=== PATIENT | female | born 1980 | race Caucasian/White ===

== ENCOUNTER 2017-01-27 03:41 | Emergency (ER) | payer SELFPAY ==
[~2017-01-27] VITALS: Ht 157.5 cm; Wt 71.5 kg
[~2017-01-27 03:41] MED LIST: PRENAT PO
[2017-01-27 03:44] VITALS: Ht 157.5 cm; Wt 71.5 kg
[2017-01-27] MEDS ORDERED: IBUP800T25 PO (04:30)
[2017-01-27] MEDS ORDERED: ONDA4TAB14 PO (04:30)
[2017-01-27] MEDS ORDERED: DICY10CA60 PO (04:30)
[2017-01-27] MEDS ORDERED: ONDANSETRON (ODT) 4 MG TAB ODT STA (04:31)
[2017-01-27 04:34] LABS: URINE BLOOD (Dip) POC 3+ (NEGATIVE)
--- NOTE | 2017-01-27 04:36 | ERD ---
ER Documentation Chief Complaint Date/Time DATE: 01/27/17 TIME: 04:34 Chief Complaint epigastric pain w/ diarrhea since 5 hours ago HPI 36-year-old female no significant past medical history who presents the emergency room complaining of nausea vomiting and diarrhea. The patient describes approximately 24 hours of symptoms that include nonbloody nonbilious emesis, epigastric and periumbilical abdominal cramping pain and loose watery stools. No recent travel, sick contacts, antibiotics. ROS All systems reviewed and are negative except as per history of present illness. Medications Home Meds Active Scripts Ibuprofen* (Motrin*) 800 Mg Tab, 800 MG PO Q6H Y for PAIN AND OR ELEVATED TEMP, #30 TAB Prov:KUSUM MELO MD 01/27/17 Ondansetron (Ondansetron Odt) 4 Mg Tab.rapdis, 4 MG PO Q6H Y for NAUSEA AND/OR VOMITING, #30 TAB Prov:KUSUM MELO MD 01/27/17 Dicyclomine Hcl* (Bentyl*) 10 Mg Capsule, 10 MG PO QID Y for abdominal cramping , #30 CAP Prov:KUSUM MELO MD 01/27/17 Reported Medications Multivit/Min/Fol Ac/Iron/Pren* ( S*) 1 Tab Tab, 1 TAB PO DAILY, TAB 03/14/16 Allergies Allergies: Coded Allergies: No Known Allergy (Unverified , 02/14/15) PMhx/Soc History of Surgery: No Anesthesia Reaction: No Hx Neurological Disorder: No Hx Respiratory Disorders: No Hx Cardiac Disorders: No Hx Psychiatric Problems: No Hx Miscellaneous Medical Probl: Yes (Shingles, ANEMIA) Hx Alcohol Use: No Hx Substance Use: No Hx Tobacco Use: No FmHx Family History: No diabetes Physical Exam Vitals Vital Signs Date Time Temp Pulse Resp B/P Pulse Ox O2 Delivery O2 Flow Rate FiO2 01/27/17 03:44 97.9 74 20 104/57 100 Physical Exam General: Well developed, well nourished, no acute distress Head: Normocephalic, atraumatic. Eyes: Pupils equally reactive, EOM intact ENT: Moist mucous membranes Neck: Supple, no lymphadenopathy Respiratory: Lungs clear bilaterally, no distress Cardiovascular: RRR, no murmurs, rubs, or gallops Abdominal: Soft, mild epigastric tenderness without rebound or guarding, negative Teague sign, no tenderness to McBurney's point : Deferred MSK: No edema, no unilateral swelling, 5/5 strength Neurologic: Alert and oriented, moving all extremities, normal speech, no focal weakness, no cerebellar signs Skin: No rash Psych: Normal mood Results 24 hrs Laboratory Tests Test 01/27/17 04:34 Bedside Urine pH (LAB) 5.5 Bedside Urine Protein (LAB) Negative Bedside Urine Glucose (UA) Negative Bedside Urine Ketones (LAB) Negative Bedside Urine Blood 3+ Bedside Urine Nitrite (LAB) Negative Bedside Urine Leukocyte Esterase (L Negative Current Medications Medications (Trade) Dose Ordered Sig/Zulma Route PRN Reason Start Time Stop Time Status Last Admin Dose Admin Dicyclomine HCl (Bentyl) 10 mg ONCE ONCE PO 01/27/17 05:00 01/27/17 05:01 Ondansetron HCl (Zofran Odt) 4 mg ONCE STAT ODT 01/27/17 04:31 01/27/17 04:32 DC Procedures/MDM The patient's clinical presentation is very consistent with an acute viral syndrome and likely viral gastroenteritis. No signs or symptoms of acute intra- abdominal process, new choledocholithiasis, acute cholecystitis. I do not believe the laboratory testing is necessary at this time. I offered IM Bentyl but the patient refused IM injection. P.o. hydration with initiation of oral Zofran and Bentyl would be appropriate. I discussed expectant management and return precautions. The patient does not exhibit any clinical signs or symptoms concerning for serious bacterial infection or systemic illness. Based on history and clinical exam findings the patient does not appear to have evidence of pneumonia, strep pharyngitis, urinary tract infection, bacteremia, sepsis, or meningitis. For these reasons I do not believe it is necessary to obtain laboratory testing or diagnostic imaging. I believe it would be appropriate for symptom control, and close outpatient primary care follow-up. We discussed follow up with the patient's primary care doctor within 24 to 48 hours as needed. We also discussed return to the emergency room for worsening symptoms or worsening condition. Discharge Medications: Bentyl, Zofran Departure Diagnosis: Primary Impression: Nausea vomiting and diarrhea Condition: Stable Patient Instructions: Gastroenteritis, Viral (6Y-Adult) Referrals: [facility] YOU HAVE RECEIVED A MEDICAL SCREENING EXAM AND THE RESULTS INDICATE THAT YOU DO NOT HAVE A CONDITION THAT REQUIRES URGENT TREATMENT IN THE EMERGENCY DEPARTMENT. FURTHER EVALUATION AND TREATMENT OF YOUR CONDITION CAN WAIT UNTIL YOU ARE SEEN IN YOUR DOCTORS OFFICE WITHIN THE NEXT 1-2 DAYS. IT IS YOUR RESPONSIBILITY TO MAKE AN APPOINTMENT FOR FOLOW-UP CARE. IF YOU HAVE A PRIMARY DOCTOR --you should call your primary doctor and schedule an appointment IF YOU DO NOT HAVE A PRIMARY DOCTOR YOU CAN CALL OUR PHYSICIAN REFERRAL HOTLINE AT IF YOU CAN NOT AFFORD TO SEE A PHYSICIAN YOU CAN CHOSE FROM THE FOLLOWING [facility] [address] [facility]. [facility] [address] [facility] [facility] [address] [facility] [facility] [address] [facility] [facility] [address] [facility]. [facility] [address] [facility]. [facility] YOU HAVE RECEIVED A MEDICAL SCREENING EXAM AND THE RESULTS INDICATE THAT YOU DO NOT HAVE A CONDITION THAT REQUIRES URGENT TREATMENT IN THE EMERGENCY DEPARTMENT. FURTHER EVALUATION AND TREATMENT OF YOUR CONDITION CAN WAIT UNTIL YOU ARE SEEN IN YOUR DOCTORS OFFICE WITHIN THE NEXT 1-2 DAYS. IT IS YOUR RESPONSIBILITY TO MAKE AN APPOINTMENT FOR FOLOW-UP CARE. IF YOU HAVE A PRIMARY DOCTOR --you should call your primary doctor and schedule and appointment IF YOU DO NOT HAVE A PRIMARY DOCTOR YOU CAN CALL OUR PHYSICIAN REFERRAL HOTLINE AT . IF YOU CAN NOT AFFORD TO SEE A PHYSICIAN YOU CAN CHOSE FROM THE FOLLOWING [facility]: [facility] [address] [place] [address] [facility] [address] [place] [address] [facility] [address] [place] [address] Additional Instructions: Call your primary care doctor TOMORROW for an appointment during the next 1 WEEK.Tell the psychiatric secretary that you were referred from this facility.See the doctor sooner or return here if your condition worsens before your appointment time. KUSUM MELO MD Jan 27, 2017 04:36
[2017-01-27] MEDS ORDERED: DICYCLOMINE 10 MG CAP PO ONE (05:00)
== END 2017-01-27 04:44 | disposition home or self-care (01) ==
LOC: E/R 03:41
DX: R11.2 Nausea with vomiting, unspecified (principal); R19.7 Diarrhea, unspecified
CPT/HCPCS: 81003; 99284

== ENCOUNTER 2017-02-06 09:12 | Emergency (ER) | payer SELFPAY ==
[~2017-02-06] VITALS: Ht 152.4 cm; Wt 69.0 kg
[~2017-02-06 09:12] MED LIST changes: +DICY10CA60 PO; +IBUP800T25 PO; +ONDA4TAB14 PO
[2017-02-06 09:16] VITALS: Ht 152.4 cm; Wt 69.0 kg
[2017-02-06] MEDS ORDERED: ONDANSETRON (ODT) 4 MG TAB ODT STA (09:37)
[2017-02-06] MEDS ORDERED: HYDROCODONE/APAP (5/325) TAB PO ONE (10:00)
--- NOTE | 2017-02-06 10:13 | RADRPT ---
PROCEDURE: CT Brain. CLINICAL INDICATION: Pain status post trauma. TECHNIQUE: Multiple contiguous axial CT images of the brain were obtained without the administrati on of intravenous contrast. Coronal and sagittal reconstructions were also performed. CTDIvol (mGy ): 44.77; Total Exam DLP (mGy-cm): 720.23 COMPARISON: 01/06/2013. FINDINGS: The ventricles are not enlarged. There is no mass effect or midline shift. There is no intracrania l hemorrhage or abnormal extra-axial fluid collection. The bailey-white matter differentiation is wel l maintained. The posterior fossa is unremarkable. Marked preseptal right periorbital soft tissue edema is observed. Air is seen within the right bony orbit. Fracture of the right medial orbital wall is observed. IMPRESSION: No evidence of acute intracranial pathology. Marked preseptal right periorbital soft tissue edema with air within the bony orbit. A fracture of t he medial wall of the right orbit is partially visualized. Please refer to CT facial bones. RPTAT: PP .Yuly Quintero MD, MD Date Time Electronically viewed and signed by .Yuly Quintero MD, on 02/06/2017 10:13 .T/
--- NOTE | 2017-02-06 10:22 | RADRPT ---
PROCEDURE: CT facial bones CLINICAL INDICATION: Trauma, right eye swollen TECHNIQUE: A CT of the facial bones was performed utilizing high-resolution axial images. Sagitta l, coronal, and multiplanar reformatted images were made. Additionally, 3-D reformatted images were made. The CTDIvol is 29.48 mGy and the DLP is 540.71 mGy-cm. One or more the following dose reduction techniques were utilized: Automated exposure control, adjus tment of the mA/ or kV according to patient's size, or use of iterative reconstruction technique. COMPARISON: None. FINDINGS: There is right orbital preseptal soft tissue swelling/hematoma and soft tissue swelling/hematoma ove rlying the right zygoma and maxilla. There is a fracture of the medial wall of right orbit with her niation of right orbital fat into right anterior ethmoid air cell. There is blood in inferior right frontal and anterior and mid right ethmoid sinuses. There is a large amount of air in the superior and medial right orbit. The orbital globes appear intact. There is a fracture of the right nasal justin ne close to the nasomaxillary suture. There is also appearance of a fracture of the distal approxima te 4 mm tip of the left nasal bone. IMPRESSION: Right orbital preseptal soft tissue swelling/hematoma and soft tissue swelling/hematoma overlying th e right zygoma and maxilla. There is a fracture of the medial wall of right orbit with herniation o f right orbital fat into right anterior ethmoid air cell. There is blood in inferior right frontal and anterior and mid right ethmoid sinuses. There is a large amount of air in the superior and medi al right orbit. There is mild lateral bowing of the right medial rectus muscle secondary to mass eff ect from air. Fracture of right nasal bone close to nasomaxillary suture. Nondepressed fracture of distal approximate 4 mm tip of left nasal bone. RPTAT: HJES .Mk Steiner MD, MD Date Time Electronically viewed and signed by .Mk Steiner MD, MD on 02/06/2017 10:21 .S/
[2017-02-06] MEDS ORDERED: ONDANSETRON 4 MG INJ IV STA (10:54)
[2017-02-06] MEDS ORDERED: AMPICILLIN/SULB 3 GM/NS (PMX) 100 ML IVPB STA (10:54)
[2017-02-06] MEDS ORDERED: LORAZEPAM 2 MG INJ IV ONE (11:00)
[2017-02-06 11:25] LABS: ADD SCAN DIFF NO
[2017-02-06 11:30] LABS: BASOPHILS % 0.3 % (0.0-2.0); EOSINOPHILS % 0.5 % (0.0-7.0); HEMATOCRIT 40.7 % (37.0-47.0); HEMOGLOBIN 13.1 g/dl (12.0-16.0); LYMPHOCYTES # 2.4 10^3/ul (0.8-2.9); LYMPHOCYTES % 27.5 % (15.0-51.0); MEAN CORPUSCULAR HEMOGLOBIN 29.2 pg (29.0-33.0); MEAN CORPUSCULAR HGB CONC 32.2 g/dl (32.0-37.0); MEAN CORPUSCULAR VOLUME 90.6 fl (82.0-101.0); MEAN PLATELET VOLUME 10.4 fl (7.4-10.4); MONOCYTE # 0.4 10^3/ul (0.3-0.9); MONOCYTES % 4.6 % (0.0-11.0); NEUTROPHIL # 5.8 10^3/ul (1.6-7.5); NEUTROPHILS % 66.9 % (39.0-77.0); PLATELET COUNT 291 10^3/UL (140-415); RED BLOOD COUNT 4.49 10^6/ul (4.20-5.40); RED CELL DISTRIBUTION WIDTH 13.6 % (11.5-14.5); WHITE BLOOD COUNT 8.7 10^3/ul (4.8-10.8)
[2017-02-06 11:49] LABS: ADD UMIC YES; URINE BILIRUBIN (Dip) NEGATIVE (NEGATIVE); URINE BLOOD (Dip) 1+ (NEGATIVE); URINE COLOR LT. YELLOW (YELLOW); URINE GLUCOSE (Dip) NEGATIVE (NEGATIVE); URINE KETONES (Dip) NEGATIVE (NEGATIVE); URINE LEUKOCYTE ESTERASE (Dip) NEGATIVE (NEGATIVE); URINE NITRITE (Dip) NEGATIVE (NEGATIVE); URINE TOTAL PROTEIN (Dip) NEGATIVE (NEGATIVE); URINE UROBILINOGEN (Dip) 0.2 E.U./dL (0.1-1.0)
[2017-02-06 11:57] LABS: PARTIAL THROMBOPLASTIN TIME 29.2 Sec (25.0-35.0); PROTIME 13.2 Sec (12.2-14.2)
[2017-02-06 12:00] LABS: ALANINE AMINOTRANSFERASE 65 IU/L (13-69); ALBUMIN 4.6 g/dl (3.3-4.9); ALBUMIN/GLOBULIN RATIO 1.27; ALKALINE PHOSPHATASE 83 IU/L (42-121); ANION GAP 13 (8-16); ASPARTATE AMINO TRANSFERASE 33 IU/L (15-46); BILIRUBIN,INDIRECT 0.6 mg/dl (0-1.1); BILIRUBIN,TOTAL 0.6 mg/dl (0.2-1.3); BLOOD UREA NITROGEN 10 mg/dl (7-20); CALCIUM 9.3 mg/dl (8.4-10.2); CARBON DIOXIDE 26 mmol/L (21-31); CHLORIDE 105 mmol/L (97-110); GLUCOSE 105 mg/dl (70-220); POTASSIUM 3.8 mmol/L (3.5-5.1); SODIUM 140 mmol/L (135-144); TOTAL PROTEIN 8.2 g/dl (6.1-8.1)
--- NOTE | 2017-02-06 12:00 | RADRPT ---
PROCEDURE: XR Chest. CLINICAL INDICATION: Chest pain. TECHNIQUE: PA and Lateral views of the chest were obtained. COMPARISON: None. FINDINGS: The soft tissues are normal. The bony elements are normal. The heart, cardiomediastinal silhouette and hilar structures are normal. The pulmonary vasculature is normal. There is a left-sided aorta. The lungs are clear. The costophrenic angles are normal. IMPRESSION: 1. Normal chest x-ray. RPTAT:AAJJ Physician Cherise Date Time Electronically viewed and signed by Ezra Chan Physician on 02/06/2017 11:59 ZAK/
[2017-02-06 12:13] LABS: TROPONIN-I < 0.012 ng/ml (0.00-0.12)
[2017-02-06 12:34] VITALS: BP 100/59; PULSE 72; RESP 18; TEMP 98
--- NOTE | 2017-02-06 12:34 | ERA ---
ER Documentation Chief Complaint Date/Time DATE: 02/06/17 TIME: 12:31 Chief Complaint right eye pain/injury HPI Patient is a 36-year-old female with no medical problems who presents with right eye pain and facial swelling. The patient said that yesterday evening a bottle of paint fell off of a shelf and fell on her right face. She had pain and swelling. The pain is constant and 5 out of 10. She has had no medications as of yet. She is not able to open the right eye. She is complaining of a headache. ROS All systems reviewed and are negative except as per history of present illness. Medications Home Meds Active Scripts Ibuprofen* (Motrin*) 800 Mg Tab, 800 MG PO Q6H Y for PAIN AND OR ELEVATED TEMP, #30 TAB Prov:KUSUM MELO MD 01/27/17 Ondansetron (Ondansetron Odt) 4 Mg Tab.rapdis, 4 MG PO Q6H Y for NAUSEA AND/OR VOMITING, #30 TAB Prov:KUSUM MELO MD 01/27/17 Dicyclomine Hcl* (Bentyl*) 10 Mg Capsule, 10 MG PO QID Y for abdominal cramping , #30 CAP Prov:KUSUM MELO MD 01/27/17 Reported Medications Multivit/Min/Fol Ac/Iron/Pren* ( S*) 1 Tab Tab, 1 TAB PO DAILY, TAB 03/14/16 Allergies Allergies: Coded Allergies: No Known Allergy (Unverified , 02/14/15) PMhx/Soc History of Surgery: No Anesthesia Reaction: No Hx Neurological Disorder: No Hx Respiratory Disorders: No Hx Cardiac Disorders: No Hx Psychiatric Problems: No Hx Miscellaneous Medical Probl: Yes (Shingles, ANEMIA) Hx Alcohol Use: No Hx Substance Use: No Hx Tobacco Use: No Smoking Status: Never smoker FmHx Family History: No diabetes Physical Exam Vitals Vital Signs Date Time Temp Pulse Resp B/P Pulse Ox O2 Delivery O2 Flow Rate FiO2 02/06/17 09:16 98.2 106 18 118/72 97 Physical Exam Const: Significant right-sided facial swelling Head: Atraumatic Eyes: Right-sided facial swelling, and I am unable to pry open the right eye given the swelling ENT: Normal External Ears, Nose and Mouth. Neck: Full range of motion..~ No meningismus. Resp: Clear to auscultation bilaterally Cardio: Regular rate and rhythm, no murmurs Abd: Soft, non tender, non distended. Normal bowel sounds Skin: Swelling and bruising to the right face Back: No midline or flank tenderness Ext: No cyanosis, or edema Neur: Awake and alert Psych: Normal Mood and Affect Result Diagram: 02/06/17 1104 02/06/17 1104 Results 24 hrs Laboratory Tests Test 02/06/17 11:04 02/06/17 11:09 White Blood Count 8.710^3/ul Red Blood Count 4.4910^6/ul Hemoglobin 13.1g/dl Hematocrit 40.7% Mean Corpuscular Volume 90.6fl Mean Corpuscular Hemoglobin 29.2pg Mean Corpuscular Hemoglobin Concent 32.2g/dl Red Cell Distribution Width 13.6% Platelet Count 66595^3/UL Mean Platelet Volume 10.4fl Neutrophils % 66.9% Lymphocytes % 27.5% Monocytes % 4.6% Eosinophils % 0.5% Basophils % 0.3% Nucleated Red Blood Cells % 0.0/100WBC Neutrophils # 5.810^3/ul Lymphocytes # 2.410^3/ul Monocytes # 0.410^3/ul Eosinophils # 0.010^3/ul Basophils # 0.010^3/ul Nucleated Red Blood Cells # 0.010^3/ul Prothrombin Time 13.2Sec Prothrombin Time Ratio 1.0 INR International Normalized Ratio 1.00 Activated Partial Thromboplast Time 29.2Sec Sodium Level 140mmol/L Potassium Level 3.8mmol/L Chloride Level 105mmol/L Carbon Dioxide Level 26mmol/L Anion Gap 13 Blood Urea Nitrogen 10mg/dl Creatinine 0.60mg/dl Glucose Level 105mg/dl Calcium Level 9.3mg/dl Total Bilirubin 0.6mg/dl Direct Bilirubin 0.00mg/dl Indirect Bilirubin 0.6mg/dl Aspartate Amino Transf (AST/SGOT) 33IU/L Alanine Aminotransferase (ALT/SGPT) 65IU/L Alkaline Phosphatase 83IU/L Troponin I < 0.012ng/ml Total Protein 8.2g/dl Albumin 4.6g/dl Globulin 3.60g/dl Albumin/Globulin Ratio 1.27 Urine Color LT. YELLOW Urine Clarity CLEAR Urine pH 5.5 Urine Specific [place] >=1.030 Urine Ketones NEGATIVE Urine Nitrite NEGATIVE Urine Bilirubin NEGATIVE Urine Urobilinogen 0.2 E.U./dL Urine Leukocyte Esterase NEGATIVE Urine Microscopic RBC 2-5/HPF Urine Microscopic WBC NONE SEEN/HPF Urine Epithelial Cells FEW Urine Hemoglobin 1+ Urine Glucose NEGATIVE% Urine Total Protein NEGATIVE Current Medications Medications (Trade) Dose Ordered Sig/Zulma Route PRN Reason Start Time Stop Time Status Last Admin Dose Admin Acetaminophen/ Hydrocodone Bitart ([place] (5/325)) 1 tab ONCE ONCE PO 02/06/17 10:00 02/06/17 10:01 DC 02/06/17 09:46 Ondansetron HCl (Zofran Odt) 4 mg ONCE STAT ODT 02/06/17 09:37 02/06/17 09:39 DC 02/06/17 09:46 Ondansetron HCl 4 mg 4 mg ONCE STAT IV 02/06/17 10:54 02/06/17 10:59 DC Ampicillin Sodium/ Sulbactam Sodium (Unasyn 3gm/NS (Pmx)) 100 ml @ 100 mls/hr ONCE STAT IVPB 02/06/17 10:54 02/06/17 11:53 DC 02/06/17 11:21 Lorazepam (Ativan) 0.5 mg ONCE ONCE IV 02/06/17 11:00 02/06/17 11:01 DC Procedures/MDM CT head negative for skull fracture or intracranial hemorrhage per radiology. Chest x-ray negative per radiology. PROCEDURE: CT facial bones CLINICAL INDICATION: Trauma, right eye swollen TECHNIQUE: A CT of the facial bones was performed utilizing high-resolution axial images. Sagittal, coronal, and multiplanar reformatted images were made. Additionally, 3-D reformatted images were made. The CTDIvol is 29.48 mGy and the DLP is 540.71 mGy-cm. One or more the following dose reduction techniques were utilized: Automated exposure control, adjustment of the mA/ or kV according to patient's size, or use of iterative reconstruction technique. COMPARISON: None. FINDINGS: There is right orbital preseptal soft tissue swelling/hematoma and soft tissue swelling/hematoma overlying the right zygoma and maxilla. There is a fracture of the medial wall of right orbit with herniation of right orbital fat into right anterior ethmoid air cell. There is blood in inferior right frontal and anterior and mid right ethmoid sinuses. There is a large amount of air in the superior and medial right orbit. The orbital globes appear intact. There is a fracture of the right nasal bone close to the nasomaxillary suture. There is also appearance of a fracture of the distal approximate 4 mm tip of the left nasal bone. IMPRESSION: Right orbital preseptal soft tissue swelling/hematoma and soft tissue swelling/ hematoma overlying the right zygoma and maxilla. There is a fracture of the medial wall of right orbit with herniation of right orbital fat into right anterior ethmoid air cell. There is blood in inferior right frontal and anterior and mid right ethmoid sinuses. There is a large amount of air in the superior and medial right orbit. There is mild lateral bowing of the right medial rectus muscle secondary to mass effect from air. Fracture of right nasal bone close to nasomaxillary suture. Nondepressed fracture of distal approximate 4 mm tip of left nasal bone. RPTAT: HJES .Mk Steiner MD, MD Date Time Electronically viewed and signed by .Mk Steiner MD, MD on 02/06/2017 10:21 Patient is a 36-year-old female presents with significant right eye and facial injuries after a traumatic process last night. She has fractures of the right orbit. There is muscle entrapment. The patient will need transfer to a facility with oral maxillofacial surgery. She will need transfer for higher level of care as we do not have the service here at [facility]. She has been accepted at [facility]. The patient was given Unasyn. The patient will be transferred by ambulance. Critical Care: Time: 35 minutes excluding all billable procedures. Treatments/Evaluations: Close monitoring and treatment of unstable vital signs, cardiorespiratory, and neurologic status, while maintaining tight balance of fluid, respiratory, and cardiac interventions. Departure Diagnosis: Primary Impression: Facial fracture Qualified Code: S02.40CA - Closed fracture of right side of maxilla, initial encounter Additional Impression: Eye injury Qualified Code: S05.91XA - Right eye injury, initial encounter Condition: BROOK Nieto MD February 06, 2017 12:34
== END 2017-02-06 13:35 | disposition short-term general hospital (02) ==
LOC: FTE 09:12
DX: S02.40CA Maxillary fracture, right side, initial encounter for closed fracture (principal); R40.2252 Coma scale, best verbal response, oriented, at arrival to emergency department; R40.2142 Coma scale, eyes open, spontaneous, at arrival to emergency department; R40.2362 Coma scale, best motor response, obeys commands, at arrival to emergency department; R51 Headache; R07.9 Chest pain, unspecified; W20.8XXA Other cause of strike by thrown, projected or falling object, initial encounter; Y92.9 Unspecified place or not applicable
CPT/HCPCS: 36415; 70450; 70486; 71010; 80053; 81001; 84484; 85025; 85610; 85730; 96374; 99291; J0295; 81003

== ENCOUNTER 2017-08-20 22:00 | Emergency (ER) | payer SELFPAY ==
[~2017-08-20] VITALS: Ht 149.9 cm; Wt 69.5 kg
[2017-08-20 22:02] VITALS: Ht 149.9 cm; Wt 69.5 kg
== END 2017-08-20 23:45 | disposition left against medical advice (07) ==
LOC: FTE 22:00
DX: Z53.21 Procedure and treatment not carried out due to patient leaving prior to being seen by health care provider (principal)